=== PATIENT | male | born 1985 | race Caucasian/White ===

== ENCOUNTER 2018-12-26 05:48 | Day surgery (SDC) | payer OTHER ==
[2018-12-26] MEDS ORDERED: SUCCINYLCHOLINE CHLORIDE 100 MG/5 ML SYG IV (06:57)
[2018-12-26] MEDS ORDERED: PROPOFOL 20 ML (06:57)
[2018-12-26] MEDS ORDERED: ROCURONIUM 50 MG INJ (06:57)
[2018-12-26] MEDS ORDERED: MIDAZOLAM 1 MG/ML 2 ML INJ (06:57)
[2018-12-26] MEDS ORDERED: CEFAZOLIN 1 GM INJ (06:57)
[2018-12-26] MEDS ORDERED: ONDANSETRON 4 MG INJ (06:57)
[2018-12-26] MEDS ORDERED: KETOROLAC 30 MG INJ (06:57)
[2018-12-26] MEDS ORDERED: PHENYLephrine (100 MCG/ML) 10ML SYG (06:58)
[2018-12-26] MEDS: HYDROmorphONE 0.5 MG/0.5 ML SYG IV (07:07)
[2018-12-26] MEDS ORDERED: LACTATED RINGER'S 1,000 ML IV (07:30)
[2018-12-26] MEDS ORDERED: CEFAZOLIN 2 GM/50 ML (PMX) 50 ML IVPB (07:30)
[2018-12-26] MEDS ORDERED: THROMBIN 5000 UNIT VIAL (08:47)
[2018-12-26] MEDS ORDERED: GELATIN SIZE 100 SPONGE (08:47)
[2018-12-26] MEDS: GELATIN SIZE 100 SPONGE (09:03)
[2018-12-26] MEDS: BUPIVACAINE 0.5%/EPI (SDV) 30 ML INJ (09:03)
[2018-12-26] MEDS: THROMBIN 5000 UNIT VIAL (09:04)
[2018-12-26] MEDS: POLYMYXIN/BACITRACIN 1L IRRIG (09:06)
[2018-12-26] MEDS: BETAMET NA PHOS/AC(6 MG/ML) 5ML INJ (09:06)
[2018-12-26] MEDS ORDERED: ONDANSETRON 4 MG INJ IV (11:00)
[2018-12-26] MEDS ORDERED: AL HYDROX/MG HYDROX/SIMETH 30 ML CUP PO (11:00)
[2018-12-26] MEDS ORDERED: NACL 0.9% 3 ML SYG IV (11:00)
[2018-12-26] MEDS ORDERED: HYDROCODONE/APAP (5/325) TAB PO (11:00)
[2018-12-26] MEDS ORDERED: NALOXONE (0.4 MG/ML) INJ IV (11:00)
[2018-12-26] MEDS ORDERED: HYDROmorphONE 0.5 MG/0.5 ML SYG IV (11:00)
[2018-12-26] MEDS ORDERED: PROCHLORPERAZINE 10 MG TAB PO (11:00)
[2018-12-26] MEDS ORDERED: ACETAMINOPHEN 325 MG TAB PO (11:00)
[2018-12-26] MEDS: ONDANSETRON 4 MG INJ IV ×2 (11:38→12:50)
[2018-12-26] MEDS: HYDROmorphONE 1 MG/5 ML IV SYRINGE IV ×3 (11:39→11:51)
[2018-12-26] MEDS: OXYCODONE/ACETAMINOPHEN (5/325) TAB PO (11:58)
[2018-12-26] MEDS: HYDROCODONE/APAP (5/325) TAB PO (14:38)
[2018-12-27] MEDS ORDERED: DOCUSATE SODIUM 100 MG CAP PO (09:00)
== END 2018-12-26 16:40 | disposition home or self-care (01) ==
LOC: SDS 05:48
DX: M48.061 Spinal stenosis, lumbar region without neurogenic claudication (principal); M51.16 Intervertebral disc disorders with radiculopathy, lumbar region; I10 Essential (primary) hypertension; E66.9 Obesity, unspecified
CPT/HCPCS: 63030; 72100; 86850; 86900; 86901; 97161